=== PATIENT | male | born 1965 | race African-American/Black ===

== ENCOUNTER 2016-07-29 18:04 | Inpatient (IN) ==
[2016-07-29] MEDS ORDERED: SODIUM CHLORIDE 0.9% 1,000 ML IV STA ×2 (18:38→22:25)
--- NOTE | 2016-07-29 19:11 | Emergency Department Note ---
Emmanuel Chandra Manpreet, am scribing for, and in the presence of, Cesar Jasmine MD 18:50. Kenroy Chandra Robert M, MD, personally performed the services described in this documentation, ascribed by Tra Benitez in my presence, and it is both accurate and complete 911 . Arrival - Arrival Chief Complaint: GI Bleed/Rectal Stated Complaint: rectal bleeding ED Nursing Triage Note: Pt c/o diarrhea since and last 2 days he has been passing bright red blood with abd pain. Mode of Arrival: Ambulatory Limitations: No Limitations Source: Patient Time Seen by Provider: 07/29/16 18:38 - History of Present Illness HPI Narrative: Pt is a 50 y/o male with Hx of CAD, NIDDM, and Dyslipidemia, who presents to the ED with CC of bright red rectal bleeding since yesterday. Pt also c/o diffuse Abd pain and diarrhea since 07/25/16. Pt states he is non-complaint with his NIDDM medication. No other complaints/pains reported to the ED. Onset (ago): day(s) Severity: mild, moderate Severity scale (1-10): 4 Allergies/Adverse Reactions: Allergies Allergy/AdvReac Type Severity Reaction Status Date / Time No Known Allergies Allergy Verified 07/05/15 15:56 Home Medications: Home Medications Medication Instructions Recorded Confirmed Type Pravastatin [Pravachol] 40 mg PO BEDTIME 07/29/16 07/29/16 History Tadalafil [Cialis] 5 mg PO ONCE PRN 07/29/16 07/29/16 History Review of System - Review of System 12 point system: reviewed and no additional remarkable complaints except as stated - Review of System Constitutional: Absent: diaphoresis, fever Respiratory: Absent: cough, respiratory distress Cardiovascular: Absent: chest pain, edema Gastrointestinal: Present: abdominal pain, diarrhea, hematochezia. Absent: nausea, vomiting Genitourinary male: Absent: dysuria Musculoskeletal: Absent: arm pain, back pain, lower back pain, leg pain, neck pain Medical,Surgical,& Family Hx - Medical History Cardio: History of: CAD Endocrine: History of: Diabetes Mellitus (NIDDM) (borderline), Dyslipidemia Musculoskeletal: History of: Musculoskeletal Problems (ACL REPAIR) - Surgical History Cardiac Surgeries: Sugical HX of: Cardiac Catheterization (at [place] in 2016, reports minimal CAD, medically managed) - Family History Family History: Reports;: Family Diabetes (MOTHER, FATHER, BROTHER), Family Heart Disease (MOTHER, BROTHER), Family Hypertension (MOTHER, BROTHER, SISTER) - Social History Smoking Status: Former smoker Exam Vital Signs: Vital Signs Temperature 96.3 F L 07/29/16 18:20 Pulse Rate 79 07/29/16 18:20 Respiratory Rate 18 07/29/16 18:20 Blood Pressure 101/61 07/29/16 18:20 O2 Sat by Pulse Oximetry 98 07/29/16 18:13 - General General appearance: alert, in no apparent distress - Head Head exam: Present: atraumatic, normocephalic, normal inspection - Eye Eye exam: Present: PERRL, EOMI, other (Conjuctival pale) - ENT ENT exam: Present: normal exam, normal oropharynx, mucous membranes moist, TM's normal bilaterally, other (Tongue Pale) - Neck Neck exam: Present: normal inspection, full ROM, trachea midline. Absent: tenderness - Chest Chest inspection: Present: normal inspection, symmetric chest wall rise - Respiratory Respiratory exam: Present: normal lung sounds bilaterally - Cardiovascular Cardiovascular exam: Present: normal rhythm, tachycardia, normal heart sounds, other (Hypotensive). Absent: murmur, rubs, gallop - Abdominal Exam Abdominal exam: Present: tenderness (Tenderness to LLQ), normal bowel sounds. Absent: soft, distention, guarding, rebound - Extremities Exam Extremities exam: Present: normal inspection, full ROM - Back Exam Back exam: Present: normal inspection, full ROM - Neurological Exam Neurological exam: Present: alert, oriented X3, CN II-XII intact, reflexes normal - Psychiatric Psychiatric exam: Present: normal affect, normal mood - Skin Skin exam: Present: warm Course - Reevaluation(s) Reevaluation #1: I am going to admit the patient to the hospitalist for further evaluation. Time: 21:26 - Consultations Consultation #1: The hospitalist will evaluate and admit the patient. Time: 21:27 Results - Labs CBC & BMP: 07/29/16 19:03 07/29/16 19:03 Disposition Clinical Impression: Lower GI bleed Case discussed with: patient, patient's family Disposition: Still a Patient Condition: Stable Time of Disposition: 21:26
[2016-07-29 19:14] LABS: Basophils % 0.7 % (0.0-0.8); Eosinophils # 0.1 10*3/uL (0.0-0.87); Eosinophils % 3.1 % (0.00-10.9); Hematocrit 44.8 VOL% (42.0-52.0); Hemoglobin 14.9 GM/DL (14.0-18.0); Immature Granulocytes % 0.4 %; Immature Granulocytes Absolute 0.02 #; Lymphocytes # 0.8 10*3/uL (1.4-4.0); Lymphocytes % 17.5 % (21.2-54.2); Mean Corpuscular HGB Conc 33.3 GM/DL (32-36); Mean Corpuscular Hemoglobin 28 PG (27-34); Mean Platelet Volume 9.1 FL (9.6-12.0); Monocytes # 0.9 10*3/uL (0.11-0.8); Monocytes % 19.8 % (1.7-12.7); Neutrophils # 2.6 10*3/uL (1.4-7.4); Neutrophils % 58.5 % (38.7-73.9); Platelet Count 262 T/CUMM (130-400); White Blood Count 4.5 T/CUMM (4-12)
[2016-07-29 19:26] LABS: INR 1.1; PT Patient Result 11.4 SECS
[2016-07-29 19:39] LABS: Albumin 3.3 G/DL (3.4-5.0); Bilirubin,Total 0.4 MG/DL (0.2-1.0); Calcium 8.7 MG/DL (8.5-10.1); Osmolality,Calculated 273.7 MOS/KG (273-304); Potassium 3.2 MMOL/L (3.5-5.1); Total Protein 7.1 G/DL (6.4-8.3)
[2016-07-29 19:44] LABS: Band Neutrophils 9 % (0-10); Burr Cells Few; Eosinophils 2 % (0-10); Lymphocytes 25 % (20-55); Platelet Estimate Normal; Poikilocytosis 1+; Segmented Neutrophils 43 % (50-85); Total Cells Counted 100
--- NOTE | 2016-07-29 21:13 | EKG Report ---
Stationary ECG Study [facility] Test Date: 07/29/2016 9:14:31 PM Pat Name: FERN RODRIGUEZ Department: Room: Gender: M International Project Manager: SR : 1965 Requested by: Cesar Jasmine Order Number: [id number] Reading MD: DILAN NICOLE Intervals Scenic Rate: 72 P: 66 NJ: 150 QRS: 94 QRSD: 90 T: -69 QT: 424 QTc: 448 Interpretive Statements SINUS RHYTHM WITH RIGHT AXIS DEVIATION ST DEVIATION AND MODERATE T-WAVE ABNORMALITY, INFEROLATERAL ISCHEMIA Electronically Signed On 07-30-16 15:58:25 CDT by DILAN NICOLE [email or web address]
--- NOTE | 2016-07-29 21:37 | CT Report ---
CT abdomen pelvis w con Indication: Lower abdomen/pelvic pain Comparison: None. Technique: CT of the abdomen and pelvis was performed following administration of intravenous contrast. Coronal and sagittal reformatted images were additionally created and submitted for review. The total DLP is 493 mGy*cm. Dose reduction: This CT exam was performed using one or more of the following dose reduction techniques: Automated exposure control, automated adjustment of the mA and/or KV according to patient size, or use of iterative reconstruction technique. Findings: Very minimal posterior basilar dependent atelectatic changes are noted bilaterally. Lung bases are otherwise clear. There is no pleural or pericardial effusion. ABDOMEN: Liver/Gallbladder: No abnormal enhancing hepatic lesions. There is no biliary ductal dilatation or gallstones. Portal vein is patent. Spleen: No acute findings. Pancreas: No acute findings. Adrenals: Within normal limits in appearance. Kidneys: Both kidneys enhance symmetrically. There is no evidence of hydronephrosis. There is normal excretion of contrast from both kidneys on delayed images. Bowel/mesentery: Small bowel is nondilated. There is no free fluid/air within the abdomen. The appendix is normal. There is suggestion of mucosal edema throughout the colon. No definite focal lesions are identified. There is no colonic dilatation. Minimal diverticular disease is suggested. There is no mesenteric adenopathy. Retroperitoneum: No evidence of aortic aneurysm or significant retroperitoneal adenopathy. PELVIS: Bladder appears unremarkable for degree of distention. Prostate is nonenlarged. There is no adenopathy or free fluid within the dependent pelvis. BONES: No acute or suspicious osseous abnormalities are identified. IMPRESSION: 1. Diffuse mild colonic mucosal edema is suggestive of a ashley colitis. Correlate clinically. No evidence of obstruction or focal lesion. 2. No other acute abnormality within the abdomen/pelvis. 07/29/2016 9:31 PM PROCEDURE INTERPRETED AT [facility] DEPARTMENT OF RADIOLOGY Final Report Signed by: Bernardo Stevenson
--- NOTE | 2016-07-29 23:36 | Hospitalist History & Physical ---
Assessment and Plan (1) Abdominal pain Status: Acute Assessment and plan: This is acute in onset associated with the diarrhea to be discussed below. Mild analgesia can be used for the abdominal pain at this point is not been incapacitating will continue to observe this can shows some thickening of the colonic wall suggesting colitis. Most likely is infectious colitis. Current Visit: Yes (2) Bloody diarrhea Status: Acute Assessment and plan: This occurs in the face of CT demonstrated colitis. 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 Be concerned about Salmonella but with I will be concerned about a E. coli 015: H7. For this reason I am withholding antibiotics until the patient starts to look septic. Now but blood pressure is normal he has normal mental function is not having fevers does not have a leukocytosis. Giving him antibiotics in the face of E. coli 0157: H7 would make complication of this infection a lot worse. Consult GI for this syndrome. We will send off stool for cultures that will include all suspect pathogens including Campylobacter and Yersinia. Guaiac stools. Check stool for WBC. C. difficile was negative. Patient should be on strict enteric precautions. Repeat CBC in the morning repeat BMP and magnesium attention to the renal function just on outside chance patient was started getting into hemolytic uremic syndrome. At this point patient is quite stable to be admitted to hospital medicine services on general medical floor. Current Visit: Yes History of Present Illness Chief complaint: 4 days of diarrhea with 2 days of hematochezia and diarrhea History of present illness: Mr. 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 But starting yesterday has been having bright red blood per rectum. He also has not urinated since coming into the emergency room. He has been given a liter of fluids there but that also did not produce in the urine. He acknowledges having chills at home. His creatinine is 1.2. Baseline is unknown. Does not have a fever blood pressure is 101/61 account is on a 4.5. He has no anemia hematocrit of 44.8% In the emergency room the gentleman did have an abdominal CT scan that revealed some mucosal edema in the colon but no focality. No mention of diverticulitis or diverticular abscesses. This likely this is a colitis. Home Medications Medication Instructions Recorded Confirmed Type Pravastatin [Pravachol] 40 mg PO BEDTIME 07/29/16 07/29/16 History Tadalafil [Cialis] 5 mg PO ONCE PRN 07/29/16 07/29/16 History Allergies Allergy/AdvReac Type Severity Reaction Status Date / Time No Known Allergies Allergy Verified 07/05/15 15:56 Medical,Surgical,& Family Hx - Medical History Cardio: History of: CAD Endocrine: History of: Diabetes Mellitus (NIDDM) (borderline), Dyslipidemia Musculoskeletal: History of: Musculoskeletal Problems (ACL REPAIR) - Surgical History Cardiac Surgeries: Sugical HX of: Cardiac Catheterization (at [place] in 2016, reports minimal CAD, medically managed) - Family History Family History: Reports;: Family Diabetes (MOTHER, FATHER, BROTHER), Family Heart Disease (MOTHER, BROTHER), Family Hypertension (MOTHER, BROTHER, SISTER) - Social History Smoking Status: Former smoker Review of systems: 12 point system assessment was done and is significant for the chief complaint history of presenting illness and past medical history. Patient is not in any distress at this point. Exam - Constitutional Vitals: Period Temp Pulse Resp BP Sys/Aviles Pulse Ox Last 24 Hr 96.3 F-96.3 F 79-79 18-18 101-101/61-61 98 General appearance: normal weight - Head Head exam: Present: normocephalic, atraumatic - Eye Eye exam: Present: EOMI, other (Anicteric sclera no conjunctival petechiae) Pupils: Present: NESS - ENT ENT exam: Present: normal oropharynx - Neck Neck exam: Present: other (Neck is supple no JVD no adenopathy) - Respiratory Respiratory exam: Present: clear to auscultation bilaterally, other (No wheezing no rales or rhonchi) - Cardiovascular Cardiovascular exam: Present: regular rate and rhythm - GI/Abdominal GI/Abdominal exam: Present: normal bowel sounds, soft, other (Mild discomfort periumbilically and both lower quadrants.) - Extremities Exam Extremities exam: Present: full ROM, other (No edema no cyanosis) - Back Exam Back exam: Present: normal inspection - Neurological Exam Neurological exam: Present: alert, oriented X3, CN II-XII intact - Psychiatric Psychiatric exam: Present: normal affect, normal mood - Skin Skin exam: Present: normal color, warm, dry Results - Labs CBC & BMP: 07/29/16 19:03 07/29/16 19:03 Lab Results: I have reviewed the past 24 hour labs
--- NOTE | 2016-07-30 08:51 | Hospitalist Progress Note ---
Assessment and Plan (1) Colitis Status: Acute Assessment and plan: Impression: 1. Colitis, etiology not known. Would consider inflammatory bowel disease in this patient, as C. difficile is negative. We are awaiting stool studies to evaluate for other infectious pathogens. Plan: Will ask GI for their evaluation. He may need sigmoidoscopy to evaluate for the possible of inflammatory bowel disease. This note was completed using [employer] voice recognition software. There may be disc recordist errors as a result. Current Visit: Yes Hospitalist: Subjective Interval history: Follow-up diarrhea and hematochezia. The patient reports a 5 day history of diarrhea. He started having bloody stools a day prior to admission. He reports cramping abdominal pain. He has not had any nausea or vomiting, and actually reports that he is hungry. He has not had any sick contacts, and there is no similar illness at home. He reports that his father had colon cancer that was diagnosed when he was in his 60s. He has no prior history of any GI problems. Exam - Constitutional Vitals: Period Temp Pulse Resp BP Sys/Aviles Pulse Ox Last 24 Hr 98.0 F-98.4 F 65-80 16-20 121-135/63-80 95-100 Vital signs are noted above. Heart is regular with no murmur or gallop. Lungs are clear with no rales or wheezes. Abdomen is tender all over, and bowel sounds are present. He is awake and alert. Results - Labs CBC & BMP: 07/29/16 19:03 07/29/16 19:03 Lab Results: I have reviewed the past 24 hour labs (Stool is negative for C. difficile.) - Diagnostic Findings Procedure: CT Abdomen and Pelvis: image reviewed by me (CT of the abdomen and pelvis shows mucosal edema throughout the colon.)
[2016-07-30] MEDS ORDERED: POTASSIUM CHLORIDE 20 MEQ TABLET PO ONE (08:59)
--- NOTE | 2016-07-30 09:04 | Gastrointestinal Consult Note ---
Assessment and Plan (1) Infectious colitis Status: Acute Assessment and plan: This is likely a Salmonella-induced infectious colitis. We are awaiting stool cultures. This patient will need a colonoscopy as an outpatient down the road due to his age and to make sure that this is not a colon cancer with a superimposed colitis which given the CT scan findings is unlikely but in the differential. I agree with waiting stool cultures, fecal white blood cells, C. difficile, and holding off on antibiotic treatment. I agree that if this is Salmonella we need to allow it to run its course in order to avoid future resistant infection/seeding of the gallbladder, unless the patient appears more toxic. Sometimes Salmonella will produce a high fever with a normal pulse and we will continue to watch for this. For the present time I agree with management currently, he will likely be able to be discharged tomorrow if his BUN and creatinine are improved. Agree with his clear liquid diet for the present time as well. This admission will be mostly about supportive care and he can likely be discharged tomorrow if he is doing better. Current Visit: Yes (2) Bloody diarrhea Status: Acute Assessment and plan: This is likely a manifestation of either hemorrhoidal bleeding versus hemorrhagic colitis, likely the latter, agree with stool cultures as obtained above, given this patient's lack of elevation in white blood cell count or fever would likely treat him symptomatically for the present time and avoid antibiotics. Again the patient will need a colonoscopy as an outpatient due to this bloody diarrhea episode and his age of 50 years. This can be set up in a month or 2. Current Visit: Yes (3) Dehydration, mild Status: Acute Assessment and plan: Clear liquid diet and IV rehydration with repeat BMP are call for. Current Visit: No History of Present Illness Chief complaint: Rectal bleeding, diarrhea 10-12 times per day, dehydration History of present illness: Mr. 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 He became ill approximately 07/25/16 with progressive abdominal pain and diarrhea. He states that this has been occurring 10-12 times per day and he noted the onset of bloody diarrhea starting the day before yesterday on Friday and was admitted yesterday on Friday for this illness. CT scan shows diffuse colitis, albeit low -grade without gross evidence of lymphadenopathy or obstruction or mass. This is not diverticulitis or diverticular bleed. The patient is 50 years old and likelihood of ischemic colitis is very low. He has not had any sick contacts, the patient drinks city water as opposed to well water. He has not been camping anytime recently nor does he have any amphibians reptiles as pets. He has no recent travel history. He does have the exposure associated with his work as a potential source for Salmonella. His white count has been low and the patient has had an absence of fevers. He feels abdominal pain throughout the abdomen slightly worse in the left lower quadrant. He does not have nausea or vomiting and his appetite is good. Home Medications Medication Instructions Recorded Confirmed Type Pravastatin [Pravachol] 40 mg PO BEDTIME 07/29/16 07/30/16 History Tadalafil [Cialis] 5 mg PO ONCE PRN 07/29/16 07/30/16 History Allergies Allergy/AdvReac Type Severity Reaction Status Date / Time No Known Allergies Allergy Verified 07/05/15 15:56 Medical,Surgical,& Family Hx - Medical History Cardio: History of: CAD No history of: Aneurysm, Cardiac Dysrhythmia, Cerebrovascular Disease, Congenital Heart Disease, CHF, Hypertension, ME, Pacemaker, PVD, Valvular Heart Disease, Cardiovascular Problems Psychological: No history of: Anxiety Disorders, ADHD, Behavior Problems, Bipolar Disorder, Depression, Previous Suicide Attempt, Psychiatric/Substance Abuse Tx, Schizophrenia, Violent Behavior, Psychiatric Problems Neurology: No history of: Brain Aneurysm, Cerebral Hemorrhage, Cerebrovascular Accident , Cerebral Palsy, Dementia, Migraine, Multiple Sclerosis, Parkinson's Disease, Peripheral Neuropathy, Seizures, TIA, Vertigo, Neurologocal Cancer HEENT: No history of: Ear Problem, Eye Problem, Dental Problems, Glaucoma, Oral Cancer, HEENT Problems Endocrine: History of: Diabetes Mellitus (NIDDM) (borderline), Dyslipidemia No history of: Adrenal Disease, Diabetes Mellitus (IDDM), Thyroid Disorder, Endocrine Cancer, Endocrine Problems Rheumatology: No history of;: Psoriasis, Sjogrens, Systemic Lupus Erythematosus Respiratory: History of: Pneumonia No history of: Asthma, Bronchitis, COPD, Intubation, Obstructive Sleep Apnea , Pulmonary Embolism, Pulmonary Hypertension, Lung Cancer, Respiratory Problems Renal: No history of: Renal (Kidney) Cancer, Dialysis, Renal Failure, Renal Problems Genitourinary: No history of: Bladder Problem, Kidney Stones, Prostate Problems, Recurring Urinary Tract Infections, Genitourinary Cancer, Problems Musculoskeletal: History of: Musculoskeletal Problems (ACL REPAIR) No history of: Amputation Hematology: No history of: Anemia, Blood Transfusion Reaction, Bleeding Problems, Clotting Problems, Sickle Cell Disease, Hematologic Cancer, Blood Disorders Other: No history of: Anesthesia Reactions, Anaphylaxis, Cancer, Eczema, HIV, Malignant Hyperthermia, MRSA, Vancomycin-Resistant Enterococci, Skin Problems, Miscellaneous Medical Problems - Surgical History Cardiac Surgeries: Sugical HX of: Cardiac Catheterization (at [place] in 2016, reports minimal CAD, medically managed) Patient Denies: Femoral-Popliteal Bypass Graft, Cardiac Surgery, Carotid Endarterectomy, Internal Defibrillator, Vascular Access Devices Thoracic Surgeries: Patient denies;: Kidney (Renal Surgery), Lithotripsy, Nephrectomy, Organ Transplant, Lobectomy Neurologic Surgeries: Patient denies: Brain Aneurysm, Cerebral Hemorrhage, Neurologic Surgery HEENT Surgeries: Patient denies: Carotid Endarterectomy, Eye Surgery, Thyroid Surgery, Tonsilectomy & Adenoidectomy Abdominal Surgeries: Patient denies: Abdominal Surgery, Appendectomy, Cholecystectomy, Colonoscopy , Gastric Bypass Surgery, EGD, Hernia Repair, Splenectomy Reproductive Surgeries: Patient denies;: Cystoscopy, Genitourinary Surgery, Prostate Surgery Orthopedic Surgeries: Patient denies;: Implanted Devices, Orthopedic Surgery, Spinal Surgery, Total Hip Replacement, Total Knee Replacement - Family History Family History: Reports;: Family Diabetes (MOTHER, FATHER, BROTHER), Family Heart Disease (MOTHER, BROTHER), Family Hypertension (MOTHER, BROTHER, SISTER) - Social History Smoking Status: Former smoker Frequency of Alcohol Use: None Type of Drug Use: None Review of systems: Constitutional: Denies fever, chills, nausea, and vomiting Eyes: Denies dry eyes, and scleral icterus HENT: Denies headaches Cardiovascular: Denies acute chest pain and claudication Respiratory: Denies shortness of breath, wheezing, and difficulty breathing, denies cough Gastrointestinal: As noted in the HPI Genitourinary: Denies dysuria and hematuria Neurologic: Denies vision loss, and loss of sensation Musculoskeletal: Denies joint swelling, joint stiffness, and muscular weakness Psychiatric: Denies depression and nathalie symptoms Heme-Lymph: Denies easy bruising, lymph node enlargement or tenderness, night sweats, excessive bleeding Allergies-immunologic: Denies pruritus and rhinorrhea Exam - Constitutional Vitals: Period Temp Pulse Resp BP Sys/Aviles Pulse Ox Last 24 Hr 97.8 F-98.4 F 65-80 16-20 121-135/63-80 95-100 Exam: Constitutional: Well-developed, well-nourished, alert, and in no acute distress Head and face: Head: Normocephalic atraumatic Eyes: Conjunctiva without injection, no gross scleral icterus, pupils equal and round bilaterally Ears: Intact to conversation in both ears Nose: External appearance is normal, nares patent Mouth: Oral mucous membranes moist without erythema dentition noted to be without erosion Neck: Normal appearance, no masses or tenderness, trachea midline Thyroid: Gland midline and appropriate size for age Respiratory: Normal respiratory effort, clear to auscultation without wheezes, rhonchi or rales Cardiovascular: Regular rate and rhythm, normal S1, S2, the exam is without rubs, murmurs or gallops. Gastrointestinal: Moderate diffuse tenderness to palpation, this is slightly worse in the left lower abdomen, normal active bowel sounds, tone normal without rigidity or guarding, no masses present, no hepatomegaly, no spleen tip felt. Rectal exam demonstrated some brown mucoid stool that is grossly guaiac positive. Lymphatic: Neck without adenopathy, axilla without lymphadenopathy present Musculoskeletal: Right and left lower extremities without evidence of edema Skin and subcutaneous tissue: No rashes or ulcerations noted, normal skin turgor, digits and nails without clubbing/cyanosis/deformities. Neurologic: The patient is grossly oriented to person place and time, cranial nerves show tongue movements are normal with normal tongue extrusion midline, light touch sensation is intact. Psychiatric: No hallucinations or delusions are present, does not appear depressed Results - Labs CBC & BMP: 07/29/16 19:03 07/29/16 19:03
[2016-07-30] MEDS: PRAVASTATIN 40 MG TABLET PO SCH (20:48)
[2016-07-31 06:30] LABS: Basophils % 0.6 % (0.0-0.8); Eosinophils # 0.2 10*3/uL (0.0-0.87); Eosinophils % 3.9 % (0.00-10.9); Hematocrit 38.6 VOL% (42.0-52.0); Hemoglobin 13.2 GM/DL (14.0-18.0); Immature Granulocytes Absolute 0.05 #; Lymphocytes # 2.2 10*3/uL (1.4-4.0); Lymphocytes % 42.2 % (21.2-54.2); Mean Corpuscular HGB Conc 34.2 GM/DL (32-36); Mean Corpuscular Hemoglobin 28 PG (27-34); Mean Corpuscular Volume 81.3 FL (87-102); Mean Platelet Volume 9.3 FL (9.6-12.0); Monocytes # 1.1 10*3/uL (0.11-0.8); Monocytes % 21.7 % (1.7-12.7); Neutrophils # 1.6 10*3/uL (1.4-7.4); Neutrophils % 30.6 % (38.7-73.9); Platelet Count 323 T/CUMM (130-400); Red Blood Count 4.75 MC/CUMM (3.8-5.5); White Blood Count 5.1 T/CUMM (4-12)
[2016-07-31 06:45] LABS: Calcium 8.1 MG/DL (8.5-10.1); Osmolality,Calculated 278.3 MOS/KG (273-304); Potassium 3.3 MMOL/L (3.5-5.1)
[2016-07-31 06:55] LABS: Band Neutrophils 15 % (0-10); Eosinophils 3 % (0-10); Lymphocytes 38 % (20-55); Segmented Neutrophils 22 % (50-85); Total Cells Counted 100
[2016-07-31 06:57] LABS: Burr Cells Slight; Platelet Estimate Adequate
[2016-07-31] MEDS ORDERED: POTASSIUM CHLORIDE 20 MEQ TABLET PO ONE (08:22)
--- NOTE | 2016-07-31 08:22 | Hospitalist Progress Note ---
Assessment and Plan (1) Colitis Status: Acute Assessment and plan: Impression: 1. Colitis, etiology not known. Would consider inflammatory bowel disease in this patient, as C. difficile is negative. Plan: Await stool cultures. Defer to GI regarding timing of endoscopic evaluation. Replace potassium. This note was completed using [employer] voice recognition software. There may be residential living assistant errors as a result. Current Visit: Yes Hospitalist: Subjective Interval history: Follow-up hematochezia. The patient continues with frequent bloody stools. Stool studies are negative for C. difficile, and positive for white blood cells and occult blood. This is not surprising. He is discouraged that he is not improving. I am concerned that he might have an inflammatory process. Exam - Constitutional Vitals: Period Temp Pulse Resp BP Sys/Aviles Pulse Ox Last 24 Hr 97.8 F-98.9 F 63-65 18-20 112-127/69-81 94-98 Vital signs are noted above. Heart is regular with no murmur or gallop. Lungs are clear with no rales or wheezes. Abdomen is protuberant and diffusely tender. Bowel sounds are present. He is awake and alert Results - Labs CBC & BMP: 07/31/16 05:50 07/31/16 05:50 Lab Results: I have reviewed the past 24 hour labs Specialty Discharge - Follow Up or Referrals
[2016-07-31] MEDS: PRAVASTATIN 40 MG TABLET PO SCH (20:06)
--- NOTE | 2016-07-31 21:08 | Gastrointestinal Progress Note ---
Assessment and Plan (1) Infectious colitis Status: Acute Assessment and plan: This is likely a Salmonella-induced infectious colitis. We are awaiting stool cultures. This patient will need a colonoscopy as an outpatient down the road due to his age and to make sure that this is not a colon cancer with a superimposed colitis which given the CT scan findings is unlikely but in the differential. I agree with waiting stool cultures, fecal white blood cells, C. difficile, and holding off on antibiotic treatment. I agree that if this is Salmonella we need to allow it to run its course in order to avoid future resistant infection/seeding of the gallbladder, unless the patient appears more toxic. Sometimes Salmonella will produce a high fever with a normal pulse and we will continue to watch for this. For the present time I agree with management currently, he will likely be able to be discharged tomorrow if his BUN and creatinine are improved. Agree with his clear liquid diet for the present time as well. This admission will be mostly about supportive care and he can likely be discharged tomorrow if he is doing better. 07/31/16--the patient's stool cultures are growing out a gram-negative krunal. This may be E. coli versus Salmonella but does not appear to be Shigella. Final speciation will likely be available tomorrow as well sensitivities. If this is a nonseminomatous strain we could consider use of Cipro potentially. This patient will not be scoped this admission but does require this at some point in the future in the next month or so. Current Visit: Yes (2) Bloody diarrhea Status: Acute Assessment and plan: This is likely a manifestation of either hemorrhoidal bleeding versus hemorrhagic colitis, likely the latter, agree with stool cultures as obtained above, given this patient's lack of elevation in white blood cell count or fever would likely treat him symptomatically for the present time and avoid antibiotics. Again the patient will need a colonoscopy as an outpatient due to this bloody diarrhea episode and his age of 50 years. This can be set up in a month or 2. 07/31/16--waiting for final speciation of the gram-negative krunal growing out of the patient's stool, this patient will need a colonoscopy as mentioned above in the next month or 2. Current Visit: Yes (3) Dehydration, mild Status: Acute Assessment and plan: Clear liquid diet and IV rehydration with repeat BMP are call for. 07/31/16--we will check the patient's BNP again tomorrow to see if he is maintaining his hydration along with CBC. I note that the patient's white blood cell count is not significantly elevated., Hematocrit has dropped slightly. Current Visit: No Gastroenterology - PN: Subj Interval history: Patient states that he has been able to tolerate clear liquids without vomiting. His bowel movements are approximately the same as yesterday and still quite bloody. He has not in excruciating pain but does feel tenderness on deep palpation of the left lower abdomen. Exam (Progress Note) - Constitutional Vitals: Period Temp Pulse Resp BP Sys/Aviles Pulse Ox Last 24 Hr 98.0 F-98.9 F 58-66 16-20 117-128/68-81 94-100 General appearance: mild distress - Head Head exam: Present: normocephalic, atraumatic - Eye Eye exam: Present: EOMI - Respiratory Respiratory exam: Present: clear to auscultation bilaterally - Cardiovascular Cardiovascular exam: Present: regular rate and rhythm - GI/Abdominal GI/Abdominal exam: Present: normal bowel sounds, tenderness (Left lower quadrant greater than right lower quadrant abdominal tenderness), soft. Absent : distended, guarding, rebound - Extremities Exam Extremities exam: Absent: edema - Neurological Exam Neurological exam: Present: alert, oriented X3, CN II-XII intact - Psychiatric Psychiatric exam: Present: normal affect, normal mood - Skin Skin exam: Present: warm Results - Labs CBC & BMP: 07/31/16 05:50 07/31/16 05:50 Specialty Discharge - Follow Up or Referrals
[2016-08-01 06:30] LABS: Basophils # 0.1 10*3/uL (0.0-0.2); Basophils % 0.9 % (0.0-0.8); Eosinophils # 0.2 10*3/uL (0.0-0.87); Eosinophils % 3.4 % (0.00-10.9); Hematocrit 38.3 VOL% (42.0-52.0); Hemoglobin 13.2 GM/DL (14.0-18.0); Immature Granulocytes % 1.8 %; Lymphocytes # 2.5 10*3/uL (1.4-4.0); Lymphocytes % 45.2 % (21.2-54.2); Mean Corpuscular HGB Conc 34.5 GM/DL (32-36); Mean Corpuscular Hemoglobin 28 PG (27-34); Mean Corpuscular Volume 80.3 FL (87-102); Mean Platelet Volume 9.4 FL (9.6-12.0); Monocytes # 1.1 10*3/uL (0.11-0.8); Monocytes % 19.7 % (1.7-12.7); Neutrophils # 1.6 10*3/uL (1.4-7.4); Platelet Count 330 T/CUMM (130-400); Red Blood Count 4.77 MC/CUMM (3.8-5.5); Red Cell Distribution Width 13.7 % (9.3-17.3); White Blood Count 5.6 T/CUMM (4-12)
[2016-08-01 07:00] LABS: Calcium 8.6 MG/DL (8.5-10.1); Osmolality,Calculated 275.4 MOS/KG (273-304); Potassium 3.5 MMOL/L (3.5-5.1)
[2016-08-01 07:07] LABS: Band Neutrophils 3 % (0-10); Eosinophils 3 % (0-10); Hypochromasia 1+; Lymphocytes 50 % (20-55); Promyelocytes 1 %; Segmented Neutrophils 26 % (50-85); Total Cells Counted 100
[2016-08-01 07:08] LABS: Platelet Estimate Normal
--- NOTE | 2016-08-01 07:15 | Gastrointestinal Progress Note ---
Assessment and Plan (1) Infectious colitis Status: Acute Assessment and plan: This is likely a Salmonella-induced infectious colitis. We are awaiting stool cultures. This patient will need a colonoscopy as an outpatient down the road due to his age and to make sure that this is not a colon cancer with a superimposed colitis which given the CT scan findings is unlikely but in the differential. I agree with waiting stool cultures, fecal white blood cells, C. difficile, and holding off on antibiotic treatment. I agree that if this is Salmonella we need to allow it to run its course in order to avoid future resistant infection/seeding of the gallbladder, unless the patient appears more toxic. Sometimes Salmonella will produce a high fever with a normal pulse and we will continue to watch for this. For the present time I agree with management currently, he will likely be able to be discharged tomorrow if his BUN and creatinine are improved. Agree with his clear liquid diet for the present time as well. This admission will be mostly about supportive care and he can likely be discharged tomorrow if he is doing better. 07/31/16--the patient's stool cultures are growing out a gram-negative krunal. This may be E. coli versus Salmonella but does not appear to be Shigella. Final speciation will likely be available tomorrow as well sensitivities. If this is a non-Salmonella strain we could consider use of Cipro potentially. This patient will not be scoped this admission but does require this at some point in the future in the next month or so. 08/01/16--No speciation yet on the gram-negative krunal in the stool, suspect E. coli versus Salmonella. White blood cell count is still fine. The patient stopped having blood in his bowel movements this morning. He has passed 3 nonbloody stools. In my opinion he can likely be discharged at this time if he tolerates his solid diet. The Micro results should be back today. Current Visit: Yes (2) Bloody diarrhea Status: Acute Assessment and plan: This is likely a manifestation of either hemorrhoidal bleeding versus hemorrhagic colitis, likely the latter, agree with stool cultures as obtained above, given this patient's lack of elevation in white blood cell count or fever would likely treat him symptomatically for the present time and avoid antibiotics. Again the patient will need a colonoscopy as an outpatient due to this bloody diarrhea episode and his age of 50 years. This can be set up in a month or 2. 07/31/16--waiting for final speciation of the gram-negative krunal growing out of the patient's stool, this patient will need a colonoscopy as mentioned above in the next month or 2. 08/01/16--patient advance to brat diet, we will arrange for colonoscopy as an outpatient down the road. If patient tolerates solid diet consider discharge today. Current Visit: Yes (3) Dehydration, mild Status: Acute Assessment and plan: Clear liquid diet and IV rehydration with repeat BMP are call for. 07/31/16--we will check the patient's BNP again tomorrow to see if he is maintaining his hydration along with CBC. I note that the patient's white blood cell count is not significantly elevated., Hematocrit has dropped slightly. 08/01/16--Condition resolved. Current Visit: No Gastroenterology - PN: Subj Interval history: Patient is hungry and wants to advance his diet to something more solid. He thinks the clear liquids are adding to his diarrhea. His blood in the stool has stopped at this point. I believe he could probably be sent home. I would love to know what his organism is before he goes home, although this is mostly for academic reasons. Exam (Progress Note) - Constitutional Vitals: Period Temp Pulse Resp BP Sys/Aviles Pulse Ox Last 24 Hr 98.2 F-98.5 F 58-67 16-20 117-129/67-79 97-100 General appearance: no acute distress - Head Head exam: Present: normocephalic - Eye Eye exam: Present: EOMI - Respiratory Respiratory exam: Present: clear to auscultation bilaterally. Absent: rhonchi, stridor, wheezes - Cardiovascular Cardiovascular exam: Present: regular rate and rhythm - GI/Abdominal GI/Abdominal exam: Present: normal bowel sounds, soft. Absent: distended, tenderness, rebound - Neurological Exam Neurological exam: Present: alert, oriented X3 - Psychiatric Psychiatric exam: Present: normal affect, normal mood Results - Labs CBC & BMP: 08/01/16 05:20 08/01/16 05:20 Specialty Discharge - Follow Up or Referrals
[2016-08-01 12:11] VITALS: BP 111/62
--- NOTE | 2016-08-01 13:30 | Discharge Summary ---
Hospital Course - Hospital Course Hospital Course: Discharge diagnosis: 1. Probable infectious gastroenteritis The patient presented to the hospital for evaluation of bloody diarrhea. CT scan of the abdomen showed findings suggestive of colitis. The patient was seen by GI. Stool cultures have been growing gram-negative rods. He was negative for C. difficile. The patient improved symptomatically, so he is not going to undergo colonoscopy during his hospitalization. This will be scheduled as an outpatient by GI. On the day of discharge, his symptoms had resolved. He was tolerating a regular diet. Medication reconciliation has been performed. Regular diet. Activity as tolerated. This note was completed using [employer] voice recognition software. There may be repeater operator errors as a result. Diagnosis - Discharge Diagnosis (1) Colitis Status: Acute Specialty Discharge - Follow Up or Referrals Discharge Plan - Discharge Data Disposition: Disch To Home/Self Care Condition at Discharge: Stable Discharge Diet: advance to your usual diet Activity: resume usual activities as tolerated Hygiene: no restrictions Weight Bearing at Discharge: full weight bearing Driving: no restrictions - Discharge Medications Continue Pravastatin [Pravachol] 40 mg PO BEDTIME Tadalafil [Cialis] 5 mg PO ONCE PRN PRN Reason: Erectile Dysfunction - Follow Up or Referral - Forms/Instructions Forms: Acute Care Work/School Release Exam - Constitutional Vitals: Period Temp Pulse Resp BP Sys/Aviles Pulse Ox Last 24 Hr 97.8 F-98.5 F 58-69 16-20 111-129/62-81 96-100 Vital signs are noted above. Abdomen is soft and nontender. He is awake and alert Discharge Results Procedures and tests throughout hospitalization: Pending Orders 07/29/16 12:45 Blood Culture Routine 07/29/16 13:15 Occult Blood, Stool Routine 07/29/16 20:45 Stool Culture/Campy/[place]ers[place] Routine Labs on day of discharge: Labs from last 24 hours 08/01/16 08/01/16 05:20 05:20 WBC 5.6 RBC 4.77 Hgb 13.2 L Hct 38.3 L MCV 80.3 L MCH 28 MCHC 34.5 RDW 13.7 Plt Count 330 MPV 9.4 L Neut % (Auto) 29.0 L Lymph % (Auto) 45.2 [place] % (Auto) 19.7 H Eos % (Auto) 3.4 Baso % (Auto) 0.9 H Neut # (Auto) 1.6 Lymph # (Auto) 2.5 [place] # (Auto) 1.1 H Eos # (Auto) 0.2 Baso # (Auto) 0.1 Total Counted 100 Immature Gran % 1.8 Nucleated RBC % 0.0 Immature Gran # 0.10 Segmented Neutrophils 26 L Band Neutrophils 3 Lymphocytes 50 Monocytes 14 Eosinophils 3 Basophils 3.0 H Promyelocytes 1 Nucleated RBCs # 0.00 Platelet Estimate Normal Hypochromasia 1+ Sodium 140 Potassium 3.5 Chloride 107 Carbon Dioxide 25 Anion Gap 11.5 BUN 5 L Creatinine 1.10 GFR Calculation 105 BUN/Creatinine Ratio 4.00 L Glucose 97 Calculated Osmolality 275.4 Calcium 8.6 DS: Provider Date of admission: 07/29/16 23:25 Primary care physician: . No PCP Attending physician on admission: Martín Liu MD Consults: 07/30/16 07:47 Consult to Physician [CONS] Routine Comment: see dr rice for prior order/colitis /red stool Consulting Provider: Marcell Parham Person Notified: ARELY Date Notified: 07/30/16 Time Notified: 07:50 Discharging clinician: Jaswant Santos MD Expected date of discharge: 08/01/16
== END 2016-08-01 13:55 | disposition home or self-care (01) | DRG 373 ==
LOC: N.ED 18:04 → N.EDINP 23:25 → SUATTDRO 23:25 → N.2E 23:49
PROVIDERS: ADMIT Internal Medicine Infectious Disease; ATTEND Internal Medicine Geriatric Medicine